=== PATIENT | male | born 1975 | race African-American/Black ===

== ENCOUNTER 2018-05-30 22:17 | Emergency (ER) | payer SELFPAY ==
[2018-05-30] MEDS ORDERED: Cephalexin 500 MG CAP ONE (23:21)
[2018-05-30] MEDS ORDERED: Sulfameth/Trimethoprim DS 800-160mg TAB ONE (23:21)
== END 2018-05-30 23:27 | disposition home or self-care (01) ==
LOC: MADERS 22:17
DX: L03.211 Cellulitis of face (principal); Z87.891 Personal history of nicotine dependence
CPT/HCPCS: 99283

== ENCOUNTER 2019-12-18 09:46 | Emergency (ER) | payer OTHER, SELFPAY ==
[2019-12-18 10:08] LABS: Mean Corpuscular HGB CONC 32.2 g/dL (32.0-36.0); Mean Corpuscular Hemoglobin 27.4 pg (27.0-31.0); Mean Platelet Volume 8.6 fL (7.4-10.4); Platelet Count 299 thou/uL (130-400); RBC Distribution Width 11.9 % (11.5-14.5); Red Blood Cell (RBC) Count 5.12 mill/uL (4.70-6.10); White Blood Cell (WBC) Count 6.4 thou/uL (4.8-10.8)
[2019-12-18 10:09] LABS: #Eosinphils 0.4 thou/uL (0.0-0.7); #Lymphocytes 2.3 thou/uL (1.20-3.40); #Monocytes 0.6 thou/uL (0.11-0.59); #Neutrophils 3.1 thou/uL (1.40-6.50); %Basophils 1.4 % (0.0-1.0); %Lymphocytes 35.3 % (21.0-51.0); %Monocytes 9.3 % (0.0-10.0)
[2019-12-18 10:10] LABS: #Basophils 0.9 thou/uL (0.0-0.2)
[2019-12-18 10:12] LABS: INR-International Normal Ratio 0.9; Prothrombin Time 12.2 sec (12.0-14.7)
[2019-12-18 10:16] LABS: BUN (Urea Nitrogen) 15 mg/dL (8.9-20.6); Calc. Creatinine Clearance 0 mL/min (70-130); Calcium 9.1 mg/dL (7.8-10.44); Carbon Dioxide 22 mmol/L (22-29); Chloride 109 mmol/L (98-107); Estimated GFR-MDRD 82; Glucose 103 mg/dL (70-105); Potassium 3.7 mmol/L (3.5-5.1); Sodium 141 mmol/L (136-145)
[2019-12-18 10:17] LABS: ALT (SGPT) 25 U/L (8-55); AST (SGOT) 19 U/L (5-34); Albumin 4.1 g/dL (3.5-5.0); Alkaline Phosphatase 80 U/L (40-110); Anion Gap 14 mmol/L (10-20); Bilirubin, Total 0.7 mg/dL (0.2-1.2); Protein, Total 7.1 g/dL (6.0-8.3)
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
[2019-12-18] MEDS ORDERED: Ibuprofen 800 MG TAB ONE (10:40)
[2019-12-18] MEDS ORDERED: Acetaminophen 500 MG TAB ONE (10:40)
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
== END 2019-12-18 11:15 | disposition home or self-care (01) ==
LOC: MADERS 09:46
DX: S13.4XXA Sprain of ligaments of cervical spine, initial encounter (principal); S16.1XXA Strain of muscle, fascia and tendon at neck level, initial encounter; M54.6 Pain in thoracic spine; F17.220 Nicotine dependence, chewing tobacco, uncomplicated; V43.52XA Car driver injured in collision with other type car in traffic accident, initial encounter
CPT/HCPCS: 70450; 72125; 72128; 80053; 85025; 85610; G0390